=== PATIENT | male | born 2000 | race Two or more races ===

== ENCOUNTER 2020-10-31 20:43 | Emergency (ER) | payer MEDICAID, OTHER ==
[~2020-10-31] VITALS: Ht 170.2 cm; Wt 74.8 kg
[2020-10-31 21:13] VITALS: BP 154/100
[2020-10-31] MEDS ORDERED: IOHEXOL 300 MG/ML 100ML BOTTLE IJ ONE (22:33)
== END 2020-11-01 01:05 | disposition left against medical advice (07) ==
LOC: EDBD 20:43 → ER 20:50
DX: S09.8XXA Other specified injuries of head, initial encounter (principal); J34.89 Other specified disorders of nose and nasal sinuses; Z53.21 Procedure and treatment not carried out due to patient leaving prior to being seen by health care provider; W22.8XXA Striking against or struck by other objects, initial encounter; Y93.89 Activity, other specified; Y92.89 Other specified places as the place of occurrence of the external cause; Y99.8 Other external cause status